=== PATIENT | male | born 1965 | race Caucasian/White ===

== ENCOUNTER 2017-10-08 02:13 | Emergency (ER) | payer OTHER ==
[~2017-10-08] VITALS: Ht 172.7 cm; Wt 74.8 kg
[~2017-10-08 02:13] MED LIST: KEFLEX500 MG PO; LISINOPRIL10 MG PO
[2017-10-08] MEDS ORDERED: KEFLEX500 M1 PO (02:32)
[2017-10-08 02:40] VITALS: BP 128/71
== END 2017-10-08 02:40 | disposition home or self-care (01) ==
LOC: M.ERS 02:13
DX: L03.116 Cellulitis of left lower limb (principal); F17.210 Nicotine dependence, cigarettes, uncomplicated; Z90.89 Acquired absence of other organs